=== PATIENT | male | born 1965 | race Two or more races ===

== ENCOUNTER 2019-08-28 17:03 | Emergency (ER) | payer BC ==
[2019-08-28] MEDS ORDERED: ASPIRIN 81 MG TABLET, CHEWABLE PO ONE (18:35)
--- NOTE | 2019-08-28 18:40 | ER Document Report ---
ED Medical Screen (RME) - General Chief Complaint: Chest Pain Stated Complaint: CHEST PAIN/TIGHTNESS Time Seen by Provider: 08/28/19 18:29 Notes: Patient is a 53-year-old female with a history of hypertension who presents to the emergency department with a chief complaint of chest pain. Patient reports yesterday he developed right-sided chest pain that radiates down his right arm. patient reports that it is a shooting type pain that is constant and intermittently intensifies. Patient denies shortness of breath. Patient reports he also has a pressure behind his eyes and bilateral hand numbness. Patient reports his blood pressure has been controlled on the Bystolic and just started a new medication last week which is a combo hypertensive drug. Patient states he did not take his dose tonight. Patient reports he is due for his 6 PM dose. TRAVEL OUTSIDE OF THE [place] IN LAST 30 DAYS: No - Related Data Allergies/Adverse Reactions: shellfish derived Allergy (Verified 08/28/19 18:29) Past Medical History - Social History Chew tobacco use (# tins/day): No Frequency of alcohol use: Occasional Drug Abuse: None Physical Exam - Vital signs Vitals: Temp Pulse BP Pulse Ox 98.7 F 90 195/110 H 97 08/28/19 17:06 08/28/19 17:06 08/28/19 17:06 08/28/19 17:06 Course - Re-evaluation Re-evalutation: 08/28/19 18:38 I did have the patient take his 6 PM dose of blood pressure medication. Will obtain basic labs. I have greeted and performed a rapid initial assessment of this patient. A comp rehensive ED assessment and evaluation of the patient, analysis of test results and completion of the medical decision making process will be conducted by additional ED providers. - Vital Signs Vital signs: Temp Pulse Resp BP Pulse Ox 98.7 F 90 195/110 H 97 08/28/19 17:06 08/28/19 17:06 08/28/19 17:06 08/28/19 17:06
[2019-08-28 19:12] LABS: ABSOLUTE BASOPHILS # (AUTO) 0.1 10^3/uL (0.0-0.2); ABSOLUTE EOSINOPHILS # (AUTO) 0.2 10^3/uL (0.0-0.6); ABSOLUTE LYMPHOCYTES (AUTO) 2.5 10^3/uL (0.5-4.7); ABSOLUTE MONOCYTES (AUTO) 0.7 10^3/uL (0.1-1.4); ABSOLUTE NEUT (AUTO) 5.6 10^3/uL (1.7-8.2); BASOPHILS % (AUTO) 0.6 % (0-2); HEMATOCRIT 50.2 % (37.9-51.0); HEMOGLOBIN 17.1 g/dL (13.5-17.0); MEAN CORPUSCULAR HEMOGLOBIN 28.9 pg (27.0-33.4); MEAN CORPUSCULAR HGB CONC 34.2 g/dL (32.0-36.0); MEAN CORPUSCULAR VOLUME 85 fl (80-97); MONOCYTES % (AUTO) 7.3 % (3-13); PLATELET COUNT 176 10^3/uL (150-450); RED BLOOD COUNT 5.92 10^6/uL (4.35-5.55); RED CELL DISTRIBUTION WIDTH 13.3 % (11.5-14.0); SEGMENTED NEUTROPHILS % (AUTO) 62.1 % (42-78); TOTAL CELLS COUNTED % (AUTO) 100 %
--- NOTE | 2019-08-28 19:30 | RADIOLOGY REPORT (SQ) ---
EXAM DESCRIPTION: CHEST 2 VIEWS COMPLETED DATE/TIME: 08/28/2019 7:03 pm REASON FOR STUDY: chest pain COMPARISON: None. EXAM PARAMETERS: NUMBER OF VIEWS: two views TECHNIQUE: Digital Frontal and Lateral radiographic views of the chest acquired. RADIATION DOSE: NA LIMITATIONS: none FINDINGS: LUNGS AND PLEURA: No opacities, masses or pneumothorax. No pleural effusion. MEDIASTINUM AND HILAR STRUCTURES: No masses or contour abnormalities. HEART AND VASCULAR STRUCTURES: Heart normal size. No evidence for failure. BONES: No acute findings. HARDWARE: None in the chest. OTHER: No other significant finding. IMPRESSION: NO ACUTE RADIOGRAPHIC FINDING IN THE CHEST. TECHNICAL DOCUMENTATION: JOB ID: [id number] [employer]- All Rights Reserved Reading location - IP/workstation name: [email or web address]
[2019-08-28 19:40] LABS: ALBUMIN 4.4 g/dL (3.5-5.0); ALKALINE PHOSPHATASE 54 U/L (38-126); ANION GAP 13 (5-19); ASPARTATE AMINO TRANSFERASE 24 U/L (17-59); BILIRUBIN,DIRECT 0.1 mg/dL (0.0-0.4); BILIRUBIN,TOTAL 0.6 mg/dL (0.2-1.3); BLOOD UREA NITROGEN 17 mg/dL (7-20); CALCIUM 9.6 mg/dL (8.4-10.2); CARBON DIOXIDE 26 mmol/L (22-30); CHLORIDE 105 mmol/L (98-107); GLUCOSE 110 mg/dL (75-110); TOTAL PROTEIN 7.4 g/dL (6.3-8.2)
--- NOTE | 2019-08-28 21:17 | ER Document Report ---
ED General - General Chief Complaint: Chest Pain Stated Complaint: CHEST PAIN/TIGHTNESS Time Seen by Provider: 08/28/19 18:29 TRAVEL OUTSIDE OF THE [place] IN LAST 30 DAYS: No - HPI Notes: Patient is a 53-year-old male who presents to the emergency department for evaluation of fluctuant blood pressure, right-sided chest pain, and radiation to the right arm. He states that he recently had a change in his blood pressure medications. He was started on Bystolic. He states that he is been keeping close record of his blood pressure, it seems to be fluctuating, and is occasionally very high. He states when it is high he gets diaphoretic. He states he is also had chest pain since yesterday. He states it is constant, but it seems to fluctuate in intensity. He has not noted anything that makes it bet ter or worse. It is in the right part of his chest, it radiates into his right arm. He has noted some associated bilateral hand numbness. Of note the patient is from [place]. He just flew in several days ago for work. - Related Data Allergies/Adverse Reactions: shellfish derived Allergy (Verified 08/28/19 18:29) Home Medications: Tribenzor 20 mg/5 mg / 12-1/2 mg, Bystolic, unknown milligrams daily Past Medical History - General Information source: Patient - Social History Smoking Status: Never Smoker Chew tobacco use (# tins/day): No Frequency of alcohol use: Occasional Drug Abuse: None Family History: CAD, Hypertension Patient has suicidal ideation: No Patient has homicidal ideation: No - Past Medical History Cardiac Medical History: Reports: Hx Hypertension Past Surgical History: Reports: Hx Appendectomy Review of Systems - Review of Systems Constitutional: See HPI EENT: No symptoms reported Cardiovascular: See HPI Respiratory: No symptoms reported Gastrointestinal: No symptoms reported Genitourinary: No symptoms reported Musculoskeletal: No symptoms reported Skin: No symptoms reported Neurological/Psychological: See HPI Physical Exam - Vital signs Vitals: Temp Pulse BP Pulse Ox 98.7 F 90 195/110 H 97 08/28/19 17:06 08/28/19 17:06 08/28/19 17:06 08/28/19 17:06 - Notes Notes: This is a very pleasant, obese 53-year-old male, appears his stated age, in no acute distress. Vital signs reviewed, please refer to chart. Head is normocephalic, atraumatic. Pupils equal round, reactive to light. Neck is supple without meningismus. Heart is regular rate and rhythm. Lungs are clear to auscultation bilaterally. No obvious deformity or abnormality to the chest wall. He has no reproducible chest wall tenderness to palpation. Abdomen is soft, nontender, normoactive bowel sounds throughout. Extremities without cyanosis, clubbing. Posterior calves are nontender. Peripheral pulses are equal. Skin is warm and dry. Patient is awake, alert, neurological exam is nonfocal. Radial pulses equal and 2+ bilateral upper extremities. Course - Re-evaluation Re-evalutation: 08/28/19 21:16 Patient presents emergency department for evaluation of chest pain. It is certainly not typical anginal pain, but the patient does have risk factors. On further questioning the patient states that he did have a negative stress test last year. Laboratory investigations were obtained, initial troponin was undetectable. I am concerned, however, given this patient's recent long travel, for the possibility of a pulmonary embolus being responsible for this sharp chest pain with radiation into the right arm. Decision was made to proceed with CT Becca White of the chest for further evaluation. Repeat troponin ordered as well. Patient is currently chest pain-free, will continue to monitor. 08/28/19 23:17 Patient chest pain-free at this time as well. He was resting comfortably. CT angiogram of the chest failed to reveal any significant acute intrathoracic pathology. Patient's current blood pressure is 137/85. I encouraged him to continue to take his medications as prescribed by his primary care physician, continue to keep a log to bring these back to him for reevaluation. He was amenable to this plan. He understands that if his pain returns, or if he develops any other new or concerning symptoms, he should return immediately to the nearest emergency department for further evaluation. Patient will be discharged in stable condition. - Vital Signs Vital signs: Temp Pulse Resp BP Pulse Ox 98.7 F 90 15 137/85 H 97 08/28/19 17:06 08/28/19 17:06 08/28/19 23:01 08/28/19 23:01 08/28/19 23:01 - Laboratory Result Diagrams: 08/28/19 18:51 08/28/19 18:51 Laboratory results interpreted by me: 08/28/19 18:51 RBC 5.92 H Hgb 17.1 H - Diagnostic Test Radiology reviewed: Reports reviewed Radiology results interpreted by me: 08/28/19 21:17 Chest X-Ray 08/28/19 18:35 IMPRESSION: NO ACUTE RADIOGRAPHIC FINDING IN THE CHEST. - EKG Interpretation by Me Additional EKG results interpreted by me: 08/28/19 21:17 Sinus mechanism with a rate of 84 bpm. Normal axis and intervals, no acute ST changes concerning for ischemia or infarction. Discharge - Discharge Clinical Impression: Chest pain Qualifiers: Chest pain type: unspecified Qualified Code(s): R07.9 - Chest pain, unspecified Hypertension Qualifiers: Hypertension type: essential hypertension Qualified Code(s): I10 - Essential (primary) hypertension Condition: Stable Disposition: HOME, SELF-CARE Instructions: Chest Pain of Unclear Cause ([facility]), High Blood Pressure, Requiring Treatment ([facility]) Additional Instructions: No clear cause was found for your chest pain today. Your chest x-ray, CT scan of your chest, and blood work were all within normal limits today. Please continue to take your regular blood pressure medication as prescribed by her primary care physician. Continue to keep a log of the blood pressures as previously requested, and follow-up closely when you return home. If you develop increased pain, difficulty breathing, or any other new or concerning symptoms, please return immediately to the emergency department for reevaluation.
--- NOTE | 2019-08-28 23:00 | RADIOLOGY REPORT (SQ) ---
EXAM DESCRIPTION: [facility]: CT CHEST ANGIOGRAPHY WITHOUT THEN WITH IV CONTRAST CLINICAL HISTORY: 53 years Male; Right chest pain and arm, eval for PE; TECHNIQUE: CT angiogram of the chest using intravenous contrast.. MIP reconstructions were performed. All CT scans at this facility use dose modulation, iterative reconstruction, and/or weight based dosing when appropriate to reduce radiation dose to as low as reasonably achievable. COMPARISON: None. FINDINGS: Chest: No filling defects in the central pulmonary arteries. No acute infiltrate, effusion, or pneumothorax. Mediastinum is normal, with no adenopathy or mass. Aorta: No aneurysm or dissection. There are bulky bridging osteophytes at several levels in the lower thoracic spine. No acute bone findings. IMPRESSION: 1. No CT evidence for pulmonary embolism. 2. No acute pulmonary findings.
[2019-08-28 23:33] VITALS: BP 147/89
--- NOTE | 2019-08-29 11:49 | EKG REPORT ---
SEVERITY:- NORMAL ECG - SINUS RHYTHM : Confirmed by: Mariann Beaulieu MD 29-Aug-2019 11:48:25
== END 2019-08-28 23:34 | disposition home or self-care (01) ==
LOC: ER 17:03
DX: R07.89 Other chest pain (principal); I10 Essential (primary) hypertension; R61 Generalized hyperhidrosis; R20.0 Anesthesia of skin; E66.9 Obesity, unspecified; Z91.013 Allergy to seafood; Z79.899 Other long term (current) drug therapy; Z82.49 Family history of ischemic heart disease and other diseases of the circulatory system
CPT/HCPCS: 36415; 71046; 71275; 80053; 84484; 85025; 93005; 93010; 99285